=== PATIENT | female | born 1960 | race Caucasian/White ===

== ENCOUNTER 2025-04-09 20:24 | Emergency (ER) | payer MEDICARE, SELFPAY ==
[2025-04-09] VITALS (10 sets, daily range): BP systolic 139–165; BP diastolic 54–91; PULSE 65–115; RESP 13–20; TEMP 35.8; O2SAT 96–100; BMI 35.9
--- NOTE | 2025-04-09 20:35 | ED.GENADULT ---
HPI - General Adult General Chief complaint: Diabetic Related Problem Stated complaint: seizure Time Seen by Provider: 04/09/25 20:26 Source: patient and EMS Mode of arrival: EMS History of Present Illness HPI narrative: 64-year-old type 1 diabetic presents to the emergency department by EMS. She was noted to be stumbling through the parking lot at [employer] in [place], on her way into the [employer]. Friends noticed and went to attend to her, lowered her to the ground where she had a brief seizure. 911 was called. She was given D10 and quickly regain consciousness. Blood sugar improved from 60 to 170s with this and she remains on a D10 drip. She reports that she eaten much today because she has not had an appetite but that she checked her blood sugar before she left. She has her meter with her and I see that her blood sugar was 66 at 6:30 p.m.. This would correlate time nicole with the events of tonight. She does not remember going to the bar but denies intoxication or any controlled substances. She reports that she has had low blood sugars before and these feel similar. She reports that she is feeling neurologically normal now. She did not take any sugar to counteract her borderline low blood sugar because she was headed to get something to eat in new that this should resolve her symptoms. She is an insulin-dependent type 1 diabetic, reports that she typically uses 7 units of Lantus in the evening and typically around 4 units with meals depending on what her blood sugar is before and how many carbs she is planning to ingest. She has not eaten yet today. Reports that she does have a history of heart disease and has had cardiac bypass surgery. She has type 1 diabetes, hypothyroidism. I can see that she is on levothyroxine, both mealtime and basal insulin, metoprolol, apixaban, oral steroid replacement, statin therapy and others. Allergies are to penicillins. Does not endorse any tobacco or illicit drug use. Medications are reviewed, do seem accurate as listed in EMR. Related Data Home Medications ?Medication ?Instructions ?Recorded ?Confirmed apixaban 5 mg tablet (Eliquis) 5 mg PO BID 04/09/25 04/09/25 blood sugar diagnostic (OneTouch 04/09/25 04/09/25 Verio test strips) levothyroxine 125 mcg tablet 125 mcg PO QAM 04/09/25 04/09/25 metoprolol succinate 25 mg mg PO 04/09/25 tablet,extended release 24 hr Allergies Allergy/AdvReac Type Severity Reaction Status Date / Time Penicillins Allergy Mild Vomiting Verified 04/09/25 20:43 orange juice AdvReac Mild Vomiting Verified 04/09/25 20:43 Exam Const: Vital Signs, click to edit/add: Vital Signs - 24 hr 04/09/25 20:34 04/09/25 20:58 04/09/25 21:00 Temperature 96.4 F L Pulse Rate 115 H 88 Pulse Rate [Pulse Oximeter] 99 Respiratory Rate 20 13 Blood Pressure [Ri ght Upper Arm] 139/91 H Pulse Oximetry 96 98 97 Oxygen Delivery Me thod Room Air 04/09/25 21:15 Temperature Pulse Rate Pulse Rate [Pulse Oximeter] Respiratory Rate 15 Blood Pressure [Ri ght Upper Arm] Pulse Oximetry Oxygen Delivery Me thod Documenting provider has reviewed patient's vital signs: yes Common normals: no apparent distress General appearance: comfortable and well kempt HENMT: Common normals: normocephalic and moist oral mucous membranes Head and scalp: normocephalic Face and sinus: normal facial exam Other: Slight tongue biting on right lateral tongue, consistent with seizure. Eye: Common normals: PERRL, EOMs intact bilaterally and conjunctivae normal Conjunctiva: conjunctiva(e) normal Pupil: PERRL Neck & C-Spine: Common normals: full ROM General: normal visual inspection Resp: Common normals: normal respiratory effort, no use of accessory muscles and clear to auscultation bilaterally Effort & inspection: able to speak in complete sentences Auscultation: clear to auscultation bilaterally Cardio: Common normals: regular rate, regular rhythm, S1 normal heart sound, S2 normal heart sound and no murmurs Rate: regular rate Rhythm: regular rhythm Heart sounds: S1 normal and S2 normal GI: Common normals: Normal to inspection, nondistended, normoactive bowel sounds present, soft to palpation, non-tender, no hepatosplenomegaly and no masses Inspection: normal to inspection Palpation: soft and no hepatosplenomegaly Back & Pelvis: Common normals: thoracic and lumbar spine normal to inspection Extremity: Common normals: normal to inspection, normal capillary refill and no pedal edema Neuro: Common normals: CN's II-XII intact bilaterally, moves all extremities and no focal motor deficits Speech: speech normal Motor exam: strength 5/5 throughout Psych: Common normals: speech normal Appearance: well kempt Attitude: engaged Activity/motor behavior: appropriate eye contact Speech: normal speech Mood and affect: euthymic mood Insight: insight good Judgement: judgment good Skin: Common normals: no rashes or lesions noted General skin exam: no rashes or lesions noted Course Course ED Course: 64-year-old female with a seizure episode most likely consistent with hypoglycemia. She improved rapidly with administration of glucose. She feels neurologically normal now and no further deficits have been appreciated. Witnessed by friends who called 911. Patient is anticoagulated due to AFib and does have significant coronary artery disease. She certainly has risk factors for other etiologies for her symptoms and even though she had rapid correction with administration of glucose, I do think at least a little bit of a workup during her monitoring time is warranted. Will place a peripheral IV, start a little bit of D5 LR, check hourly blood sugars. I do think a head CT due to the seizure and symptoms she describes is warranted. Basic blood work to look for acidosis, electrolyte abnormalities, renal dysfunction, dehydration and infection are recommended also. EKG. Reevaluation(s) Reevaluation #1: Update: CT is reassuring. Labs are reassuring as well. Patient will have a trial of eating. Her blood sugars continue to improve. Blood sugars about 144 and she was agreeable to eating a sandwich an 8 about 3/4 of this, then states that she is full. She remembers many more of the details and tells me about the borderline blood sugar that she had when she left home. When she got to the bar and restaurant, she ran into friends in the parking lot and got to talking to them longer than expected. She knew that her blood sugar was kind of low but assume that she would be going into the restaurant to eat pretty soon so she did not worry about it. Her friends recognized that she was getting kind of woozy and actually had lowered her to the ground before the seizure started and then called 911. She continues to feel normal and reports that she typically has very tightly controlled blood sugars. We review her regimen extensively. She has excellent compliance with her regimen, just made a simple mistake tonight. She has remained stable here with 3 hours of monitoring and blood sugars have continued to improve. Boyfriend can stay with her for tonight and she understands that she will need to recheck her blood sugar is soon as she gets home. We discussed ideal bedtime blood sugars of being about 150-200. If her blood sugar is below 150, she does need to have a stat before bedtime. She verbalizes agreement with this. I let her know the because of the metoprolol that she takes for her heart and the fact that she is aging she may not get if any symptoms of hypoglycemia prior to seizures or loss of consciousness. This can make low blood sugar is extremely dangerous. It is okay for her to take her Lantus when she gets home as long as her blood sugar is above 150. She ate a sandwich here quite well and this was not included in the repeat blood sugar in the 140s. I have advised her not to use any short-acting insulin at bedtime unless her blood sugar is over 200. She says that this is a bit of a shift for her but she feels comfortable making this adjustment. We also discussed continuous glucose monitors, I do think she would benefit from 1. I let her know that this episode alone might qualify her for 1 and she should discuss this with her diabetes care team. Alarm symptoms are reviewed and written instructions are provided. She verbalizes understanding and agreement. Vital Signs Vital signs: Initial Vital Signs Temperature 96.4 F L 04/09/25 20:34 Temperature Source Temporal Artery Scan 04/09/25 20:34 Pulse Rate 99 04/09/25 20:34 Respiratory Rate 20 04/09/25 20:34 Blood Pressure 139/91 H 04/09/25 20:34 Blood Pressure Mean 107 H 04/09/25 20:34 Blood Pressure Position Supine 04/09/25 20:34 Pulse Oximetry 96 04/09/25 20:34 Oxygen Delivery Method Room Air 04/09/25 20:34 Vital Signs Temperature 96.4 F L 04/09/25 20:34 Pulse Rate 99 04/09/25 20:34 Respiratory Rate 20 04/09/25 20:34 Blood Pressure 139/91 H 04/09/25 20:34 Pulse Oximetry 96 04/09/25 20:34 Oxygen Delivery Method Room Air 04/09/25 20:34 Temperature 96.4 F L 04/09/25 20:34 Pulse Rate 88 04/09/25 21:00 Respiratory Rate 15 04/09/25 21:15 Blood Pressure 139/91 H 04/09/25 20:34 Pulse Oximetry 97 04/09/25 21:00 Oxygen Delivery Method Room Air 04/09/25 20:34 Medications Administered Medications: Generic Name Dose Route Start Last Admin Trade Name Aloq PRN Reason Stop Dose Admin Dextrose/Lactated Ringer's 1,000 mls @ 75 mls/hr 04/09/25 21:21 04/09/25 21:40 5 % Dextrose In Lac Ringer's IV 75 mls/hr .[id number] JULIENNE Administration Medical Decision Making Lab Data Lab results reviewed: Yes I reviewed the patient's lab results Lab results narrative: Labs are reassuring. Low no signs of occult infection. Hemoglobin appears stable. No significant signs of abnormal troponin, electrolyte abnormality or renal dysfunction. Labs: Lab Results 04/09/25 04/09/25 04/09/25 Range/Units 20:37 20:40 20:54 WBC (4.50-11.00) K/uL RBC (4.00-5.20) m/uL Hgb (12.0-16.0) gm/dL Hct (33.0-51.0) % MCV (80-100) fL MCH (26-34) pg MCHC (32-36) gm/dL RDW Coeff of Albert (11.5-15.5) % Plt Count (140-440) K/uL Neut % (Auto) (42.0-72.0) % Lymph % (Auto) (20-44) % [place] % (Auto) (0.0-11.0) % Eos % (Auto) (0.0-7.0) % Baso % (Auto) (0.0-3.0) % Neut # (Auto) (1.7-7.0) K/uL Lymph # (Auto) (0.90-2.90) K/uL [place] # (Auto) (0.00-0.90) K/UL Eos # (Auto) (0.00-0.50) K/uL Baso # (Auto) (0.00-0.30) K/uL Abs Immat Gran (auto) (0.00-0.30) K/uL Imm/Tot Granulo (auto) % VBG pH (7.32-7.43) VBG pCO2 (40-50) mmHG VBG pO2 (25-47) mmHG VBG HCO3 (21-28) mmol/L Sodium (135-149) mmol/L Potassium (3.6-5.1) mmol/L Chloride (96-114) mmol/L Carbon Dioxide (20-32) mmol/L Anion Gap (7-15) mEq/L BUN (7-30) mg/dL Creatinine (0.5-1.5) mg/dL Estimated Creat Clear Estimated GFR ml/min Glucose (60-115) mg/dL Lactate (0.5-1.9) mmol/L Calcium (8.4-10.6) mg/dL Total Bilirubin (0.1-1.5) mg/dL AST (12-35) U/L ALT (4-35) U/L Alkaline Phosphatase (40-150) U/L C-Reactive Protein (0.5-1.0) mg/dL Total Protein (6.0-8.3) g/dL Albumin (3.3-5.0) g/dL Urine Color Yellow (Yellow) Urine Appearance Clear (Clear) Urine pH 5.5 (5.0-8.5) Ur Specific [place] 1.025 (1.000-1.030) Urine Protein 1+ A (Negative) Urine Glucose (UA) Negative (Negative) Urine Ketones Negative (Negative) Urine Blood 2+ A (Negative) Urine Nitrite Negative (Negative) Urine Bilirubin Negative (Negative) Urine Urobilinogen 0.2 (0.2-1.0) Ur Leukocyte Esterase Negative (Negative) Urine RBC 0-2 (0-2) Urine WBC 0-2 (0-5) Ur Squamous Epith Cells Few (None-Few) Urine Bacteria Few A (None) Ethyl Alcohol (0.01-0.03) % POC Glucose 90 (60-115) mg/dl POC Troponin I 0.00 L (0.01-0.04) ng/ml 04/09/25 04/09/25 04/09/25 Range/Units 21:22 22:34 23:34 WBC 8.45 (4.50-11.00) K/uL RBC 3.59 L (4.00-5.20) m/uL Hgb 10.2 L (12.0-16.0) gm/dL Hct 31.0 L (33.0-51.0) % MCV 86 (80-100) fL MCH 28 (26-34) pg MCHC 33 (32-36) gm/dL RDW Coeff of Albert 14.4 (11.5-15.5) % Plt Count 259 (140-440) K/uL Neut % (Auto) 68.9 (42.0-72.0) % Lymph % (Auto) 23.8 (20-44) % [place] % (Auto) 4.7 (0.0-11.0) % Eos % (Auto) 2.1 (0.0-7.0) % Baso % (Auto) 0.4 (0.0-3.0) % Neut # (Auto) 5.82 (1.7-7.0) K/uL Lymph # (Auto) 2.01 (0.90-2.90) K/uL [place] # (Auto) 0.40 (0.00-0.90) K/UL Eos # (Auto) 0.18 (0.00-0.50) K/uL Baso # (Auto) 0.03 (0.00-0.30) K/uL Abs Immat Gran (auto) 0.01 (0.00-0.30) K/uL Imm/Tot Granulo (auto) 0.1 % VBG pH 7.391 (7.32-7.43) VBG pCO2 46 (40-50) mmHG VBG pO2 < 30.1 (25-47) mmHG VBG HCO3 28 (21-28) mmol/L Sodium 135 (135-149) mmol/L Potassium 4.7 (3.6-5.1) mmol/L Chloride 104 (96-114) mmol/L Carbon Dioxide 27 (20-32) mmol/L Anion Gap 4 L (7-15) mEq/L BUN 18 (7-30) mg/dL Creatinine 0.7 (0.5-1.5) mg/dL Estimated Creat Clear 71.84 Estimated GFR 98 ml/min Glucose 76 (60-115) mg/dL Lactate 0.9 (0.5-1.9) mmol/L Calcium 8.8 (8.4-10.6) mg/dL Total Bilirubin 0.8 (0.1-1.5) mg/dL AST 40 H (12-35) U/L ALT 20 (4-35) U/L Alkaline Phosphatase 101 (40-150) U/L C-Reactive Protein 1.6 H (0.5-1.0) mg/dL Total Protein 7.2 (6.0-8.3) g/dL Albumin 3.6 (3.3-5.0) g/dL Urine Color (Yellow) Urine Appearance (Clear) Urine pH (5.0-8.5) Ur Specific [place] (1.000-1.030) Urine Protein (Negative) Urine Glucose (UA) (Negative) Urine Ketones (Negative) Urine Blood (Negative) Urine Nitrite (Negative) Urine Bilirubin (Negative) Urine Urobilinogen (0.2-1.0) Ur Leukocyte Esterase (Negative) Urine RBC (0-2) Urine WBC (0-5) Ur Squamous Epith Cells (None-Few) Urine Bacteria (None) Ethyl Alcohol < 0.01 (0.01-0.03) % POC Glucose 111 144 H (60-115) mg/dl POC Troponin I (0.01-0.04) ng/ml Imaging Data CT scan - head: Attestation: I have reviewed the pertinent imaging results. My impression: Normal head CT. No mass, skull fracture or signs of hemorrhage. Radiologist's impression: Findings: Brain: No acute hemorrhage. No acute infarct. No significant mass effect or midline shift. No gross evidence of a mass lesion or cerebral edema. Mild chronic microvascular ischemic disease and global parenchymal volume loss. Ventricles: No acute abnormality appreciated. Orbits, sinuses, mastoids: No acute abnormality appreciated. Calvarium and soft tissues: No acute abnormality appreciated. Impression: No acute abnormality appreciated. Please note that all CT scans at this facility use dose modulation, iterative reconstruction, and/or weight-based dosing when appropriate to reduce radiation dose to as low as reasonably achievable. Dictated by Ketan Reyes MD @ 04/09/2025 10:11:46 PM ECG Data Attestation: I personally reviewed and interpreted this ECG as follows: Prior ECG tracings: available for review Interpretation: Atrial fibrillation with a rate of 106. No obvious ischemic changes. [place] appears normal. Discharge Plan Discharge Clinical Impression: Seizure due to hypoglycemia Patient Disposition: Home w/ Parent or Adult Condition: Improved Instructions: What to Do if Your Blood Sugar is Low (ED) Additional Instructions: As we discussed, I do believe that the episode that you had today was related to low blood sugar and not a seizure for any other reason. Your blood work does not show any acidosis, infection, new heart disease or other abnormality. You Responded very quickly to the sugar that you were given by the ambulance crew. We have monitored you for several hours here in the emergency room and especially since you have been able to eat and your blood sugars continue to improve, I think it is safe to send you home. Remember to check your blood sugar again when you get home. If your blood sugar is below 150, you need to have another snack. Do not give yourself any short-acting insulin unless your blood sugar is over 200 at bedtime. Remember that 150-200 at bedtime is a perfect goal. It is okay for you to take your 7 units of Lantus when you get home. Continue monitoring your blood sugars closely and follow up with your diabetes team if you continue to notice abnormalities. Please have someone stay with you tonight. I would love for you to look into a continuous glucose monitor that can alert you to rapid fluctuations in blood sugars or low blood sugars. These have come down in [place] quite a bit and are often more covered by insurance. This episode that you had today may be enough to qualify you for 1 as well. Please reach out to your diabetes team for more information on how to qualify for this device. Please return to the emergency department if you have any new or worsening symptoms. Activity Level: Activity as Tolerated Discharge Diet: Regular Prescriptions: No Action (DME) OneTouch Verio test strips Strip MISCELLANEOUS levothyroxine 125 mcg tablet 125 mcg PO QAM metoprolol succinate 25 mg tablet extended release 24 hr PO Eliquis 5 mg tablet 5 mg PO BID Follow Up/Referrals: Provider,Not a Local [Primary Care Provider, Family Practice] Stand Alone Forms: [employer] Info Instructions Procedures ABG Interpretation ABG Results: 04/09/25 21:22 VBG pH 7.391 VBG pCO2 46 VBG pO2 < 30.1 VBG HCO3 28
--- NOTE | 2025-04-09 20:49 | CRLHL7_ITS ---
For Patients: As a result of the Century Cures Act, medical imaging exams and procedure reports are released immediately into your electronic medical record. You may view this report before your referring provider. If you have questions, please contact your health care provider. Indication: Seizure, history of AFib, on anticoagulation Technique: Noncontrast CT through the head with multiplanar reformats Comparison: None Findings: Brain: No acute hemorrhage. No acute infarct. No significant mass effect or midline shift. No gross evidence of a mass lesion or cerebral edema. Mild chronic microvascular ischemic disease and global parenchymal volume loss. Ventricles: No acute abnormality appreciated. Orbits, sinuses, mastoids: No acute abnormality appreciated. Calvarium and soft tissues: No acute abnormality appreciated. Impression: No acute abnormality appreciated. Please note that all CT scans at this facility use dose modulation, iterative reconstruction, and/or weight-based dosing when appropriate to reduce radiation dose to as low as reasonably achievable. Dictated by Ketan Reyes MD @ 04/09/2025 10:11:46 PM (Electronically Signed)
[2025-04-09 21:02] LABS: Appearance Urine Clear (Clear)
[2025-04-09 21:28] LABS: HCO3 VBG 28 mmol/L (21-28); Lactate* 0.9 mmol/L (0.5-1.9); PCO2 VBG 46 mmHG (40-50); PO2 VBG < 30.1 mmHG (25-47); pH VBG 7.391 (7.32-7.43)
[2025-04-09 21:28] LABS: Glucose, Point-of-Care* 90 mg/dl (60-115)
[2025-04-09 21:33] LABS: Hematocrit* 31.0 % (33.0-51.0); Hemoglobin* 10.2 gm/dL (12.0-16.0); Immature Granulocytes Abs Auto 0.01 K/uL (0.00-0.30); Immature Granulocytes Pct Auto 0.1 %; Lymphocytes Absolute Auto 2.01 K/uL (0.90-2.90); Mean Corpuscular HGB Conc 33 gm/dL (32-36); Mean Corpuscular Hemoglobin 28 pg (26-34); Mean Corpuscular Volume 86 fL (80-100); RDW Coefficient of Variation % 14.4 % (11.5-15.5); Red Blood Count* 3.59 m/uL (4.00-5.20); White Blood Count* 8.45 K/uL (4.50-11.00)
[2025-04-09 21:34] LABS: Slide Review Reflex No
[2025-04-09] MEDS: 5 % DEXTROSE IN LAC RINGER'S 1,000 ML 75 ML IV (21:40)
[2025-04-09 21:58] LABS: Albumin* 3.6 g/dL (3.3-5.0); Chloride* 104 mmol/L (96-114); Sodium* 135 mmol/L (135-149)
[2025-04-09 21:59] LABS: Potassium* 4.7 mmol/L (3.6-5.1)
[2025-04-09 22:01] LABS: Alanine Aminotransferase* 20 U/L (4-35); Alkaline Phosphatase* 101 U/L (40-150); Anion Gap 4 mEq/L (7-15); Aspartate Amino Transferase* 40 U/L (12-35); Bilirubin Total* 0.8 mg/dL (0.1-1.5); Blood Urea Nitrogen* 18 mg/dL (7-30); Carbon Dioxide* 27 mmol/L (20-32); Creatinine* 0.7 mg/dL (0.5-1.5); Est. Creatinine Clearance* 71.84; Estimated Glomerular Filt Rate 98 ml/min; Total Protein* 7.2 g/dL (6.0-8.3)
[2025-04-09 22:02] LABS: Calcium* 8.8 mg/dL (8.4-10.6); Ethanol* < 0.01 % (0.01-0.03); Glucose* 76 mg/dL (60-115)
[2025-04-09 22:10] LABS: Troponin, Point-of-Care* 0.00 ng/ml (0.01-0.04)
[2025-04-09 22:46] LABS: Glucose, Point-of-Care* 111 mg/dl (60-115)
[2025-04-09 23:55] LABS: Glucose, Point-of-Care* 144 mg/dl (60-115)
== END 2025-04-10 00:53 | disposition home or self-care (01) ==
PROVIDERS: Emergency Provider Family Medicine
DX: G40.89 Other seizures (principal); E10.649 Type 1 diabetes mellitus with hypoglycemia without coma
CPT/HCPCS: 36415; 70450; 80053; 81001; 81003; 82077; 82803; 82947; 82962; 83605; 84484; 85025; 86140; 87086; 93005; 99284